=== PATIENT | male | born 1940 | race African-American/Black ===

== ENCOUNTER 2016-10-11 12:20 | Day surgery (SDC) | payer OTHER ==
[~2016-10-11] VITALS: Ht 170.2 cm; Wt 70.3 kg
[~2016-10-11 12:20] MED LIST: ALEVE220 M2 PO; ASPIR-LOW81 MG PO; ATORVASTATIN CA20 MG PO; ATORVASTATIN CA40 MG PO; Aspirin E.C. PO; B COMPLETE1 EACH PO; CARVEDILOL3.125 MG PO; CARVEDILOL6.25 MG PO; CITALOPRAM HBR10 MG PO; CYCLOBENZAPRINE10 MG PO; FLEXERIL10 MG PO; FUROSEMIDE20 MG PO; LEVOTHYROXINE25 MCG PO; LIPITOR20 MG PO; LISINOPRIL2.5 MG PO; MEDROL DOSEPAK4 MG PO; METOPROLOL TART25 MG PO; NORCO 5/3251 TABLET PO; OMEPRAZOLE40 M1 PO; PLAVIX75 MG PO; Plavix PO; SERTRALINE HCL50 MG PO; SPIRONOLACTONE25 MG PO; ST. JOSEPH ASPI81 MG PO; TAMSULOSIN HCL0.4 MG PO; VITAMIN D31000 UNIT PO; Zocor PO
== END 2016-10-11 16:20 | disposition home or self-care (01) ==
LOC: CATH 12:20
DX: Z45.02 Encounter for adjustment and management of automatic implantable cardiac defibrillator (principal); I47.2 Ventricular tachycardia; I25.2 Old myocardial infarction; I42.0 Dilated cardiomyopathy; I35.0 Nonrheumatic aortic (valve) stenosis; I10 Essential (primary) hypertension; E78.01 Familial hypercholesterolemia; E03.9 Hypothyroidism, unspecified; Z87.891 Personal history of nicotine dependence; Z79.82 Long term (current) use of aspirin
CPT/HCPCS: J0690; J1200; J2250; J3010; S0020

== ENCOUNTER → 2017-03-01 | Outpatient (CLI) | payer OTHER ==
[~2017-03-01] VITALS: Ht 170.2 cm; Wt 70.3 kg
[2017-03-01 15:02] LABS: MCH 30.7 PG (29.0-34.0); MCHC 32.2 G/DL (30.0-36.0); MCV 95.1 FL (86-99); MEAN PLAT.VOLUME 10.8 uM^3 (9.0-12.4); PLATELET COUNT 106 K/uL (156-360); RBC DIS.WIDTH-CV 13.4 % (11.8-14.6); RBC DIS.WIDTH-SD 47.4 % (39-53); RED BLOOD COUNT 4.73 M/uL (4.00-5.50); WHITE BLOOD COUNT 5.6 K/uL (4.1-10.2)
[2017-03-01 15:07] LABS: INTER. NORMALIZED RATIO 1.1; PROTHROMBIN TIME 12.5 SEC (10.2-12.9)
[2017-03-01 15:10] LABS: PTT 49.2 SEC (25-37)
== END | disposition home or self-care (01) ==
LOC: AMB 13:54
PROVIDERS: Internal Medicine Pulmonary Disease
PROC: 0BJ0XZZ Inspection of Tracheobronchial Tree, External Approach (ICD-10-PCS; principal; 2017-03-01)
DX: R04.2 Hemoptysis (principal); Z53.09 Procedure and treatment not carried out because of other contraindication
CPT/HCPCS: 85027; 85610; 85730; 86850; 86900; 86901; 99214; J0461; J2175; J2250; J2550; J3010

== ENCOUNTER → 2017-04-09 | Outpatient (CLI) | payer OTHER ==
[~2017-04-09] VITALS: Ht 170.2 cm; Wt 67.6 kg
[~2017-04-09] MED LIST changes: +ALDACTONE25 MG PO; +DYMISTA NASAL S23 GM BOTH NARES; +FLOMAX0.4 MG PO; +INCRUSE ELLI62.5 MCG IH; +IPRATROPIUM BRO30 ML BOTH NARES; +ZITHROMAX250 MG PO
[2017-04-09 14:42] LABS: HEMATOCRIT 45.5 % (38.0-50.0); MCH 32.6 PG (29.0-34.0); MCHC 33.4 G/DL (30.0-36.0); MCV 97.6 FL (86-99); MEAN PLAT.VOLUME 11.7 uM^3 (9.0-12.4); PLATELET COUNT 111 K/uL (156-360); RBC DIS.WIDTH-SD 49.9 % (39-53); RED BLOOD COUNT 4.66 M/uL (4.00-5.50); WHITE BLOOD COUNT 6.7 K/uL (4.1-10.2)
[2017-04-09 14:50] LABS: INTER. NORMALIZED RATIO 1.1; PROTHROMBIN TIME 11.7 SEC (10.2-12.9)
[2017-04-09 14:52] LABS: PTT 49.7 SEC (25-37)
== END | disposition home or self-care (01) ==
LOC: AMB 13:00
PROVIDERS: Internal Medicine Pulmonary Disease
PROC: 0B9D8ZX Drainage of Right Middle Lung Lobe, Via Natural or Artificial Opening Endoscopic, Diagnostic (ICD-10-PCS; principal; 2017-04-09)
DX: R91.8 Other nonspecific abnormal finding of lung field (principal); R05 Cough; J44.9 Chronic obstructive pulmonary disease, unspecified; R63.4 Abnormal weight loss; I10 Essential (primary) hypertension; E03.9 Hypothyroidism, unspecified; I48.91 Unspecified atrial fibrillation; I25.2 Old myocardial infarction; Z87.891 Personal history of nicotine dependence; Z95.0 Presence of cardiac pacemaker
CPT/HCPCS: 85027; 85610; 85730; 87070; 87116; 87205; 87206; 88108; J0461; J2175; J2250; J2310; J2550; J3010

== ENCOUNTER 2017-06-13 12:51 | Inpatient (IN) | payer OTHER ==
[~2017-06-13] VITALS: Ht 172.7 cm; Wt 73.7 kg
[2017-06-13 13:53] LABS: HEMATOCRIT 41.5 % (38.0-50.0); MCH 31.7 PG (29.0-34.0); MCHC 33.7 G/DL (30.0-36.0); MCV 93.9 FL (86-99); PLATELET COUNT 133 K/uL (156-360); RBC DIS.WIDTH-CV 13.5 % (11.8-14.6); RBC DIS.WIDTH-SD 46.5 % (39-53); RED BLOOD COUNT 4.42 M/uL (4.00-5.50); WHITE BLOOD COUNT 6.6 K/uL (4.1-10.2)
[2017-06-13 14:01] LABS: CHLORIDE 112 mEq/L (99-109); POTASSIUM 4.3 mEq/L (3.7-5.4); SODIUM 139 mEq/L (136-147)
[2017-06-13 14:03] LABS: GLUCOSE 119 mg/dL (70-99)
[2017-06-13 14:07] LABS: GFR ESTIMATE (CALCULATED) > 59 mL/min/ (58.99-99999)
[2017-06-13 14:08] LABS: UREA NITROGEN (BUN) 16 mg/dL (9-23)
[2017-06-13 14:14] LABS: TROP-I INTERPRETATION NEGATIVE; TROPONIN-I 0.03 ng/mL (0.0-0.30)
[2017-06-13] MEDS ORDERED: DELTASONE20 M1 PO (15:58)
[2017-06-13] MEDS ORDERED: TRAMADOL HCL50 MG PO (15:59)
[2017-06-13] MEDS ORDERED: AUGMENTIN875 MG PO (15:59)
[2017-06-13] MEDS ORDERED: TRIAMCINOLONE A15 GM TP (15:59)
[2017-06-13] MEDS ORDERED: PROAIR HFA8.5 GM IH (15:59)
[2017-06-13 18:06] LABS: TROP-I INTERPRETATION NEGATIVE; TROPONIN-I 0.03 ng/mL (0.0-0.30)
[2017-06-13 18:10] VITALS: BP 133/86
[2017-06-13 19:45] VITALS: BP 114/76
[2017-06-13 23:44] VITALS: BP 93/71
[2017-06-14 01:23] LABS: TROP-I INTERPRETATION NEGATIVE; TROPONIN-I 0.02 ng/mL (0.0-0.30)
[2017-06-14 03:50] VITALS: BP 88/67
[2017-06-14 04:46] VITALS: BP 95/69
[2017-06-14 06:55] LABS: HEMATOCRIT 42.3 % (38.0-50.0); HEMOGLOBIN 13.8 G/DL (12.5-16.6); MCH 31.6 PG (29.0-34.0); MCHC 32.6 G/DL (30.0-36.0); MCV 96.8 FL (86-99); PLATELET COUNT 121 K/uL (156-360); RBC DIS.WIDTH-CV 13.8 % (11.8-14.6); RBC DIS.WIDTH-SD 49.8 % (39-53); RED BLOOD COUNT 4.37 M/uL (4.00-5.50); WHITE BLOOD COUNT 5.5 K/uL (4.1-10.2)
[2017-06-14 07:12] LABS: TROP-I INTERPRETATION NEGATIVE; TROPONIN-I 0.04 ng/mL (0.0-0.30)
[2017-06-14 07:18] LABS: ALBUMIN 3.4 G/DL (3.2-4.8); ALKALINE PHOSPHATASE 82 IU/L (3-129); ALT (GPT) 61 IU/L (3-49); AST (GOT) 29 IU/L (2-34); CHLORIDE 110 MEQ/L (99-109); CREATININE 1.2 MG/DL (0.6-1.3); GFR ESTIMATE (CALCULATED) > 59 mL/min/ (58.99-99999); GLUCOSE 135 mg/dL (70-99); POTASSIUM 4.9 MEQ/L (3.7-5.4); SODIUM 138 MEQ/L (136-147); TOTAL BILIRUBIN 0.9 MG/DL (0.0-1.0); TOTAL PROTEIN 5.1 G/DL (6.4-8.3); UREA NITROGEN (BUN) 20 mg/dL (9-23)
[2017-06-14 08:09] VITALS: BP 118/54
[2017-06-14 08:33] LABS: INTER. NORMALIZED RATIO 1.1
[2017-06-14 08:36] LABS: PTT 48.4 SEC (25-37)
[2017-06-14 11:05] VITALS: BP 100/68
[2017-06-14 12:49] LABS: TYPE OF FLUID PLEURAL
[2017-06-14 13:26] LABS: APPEARANCE CLEAR-YELLOW; BODY FLUID EOSINOPHILS 0 % (0-25); BODY FLUID RBC'S 1000 /MM^3 (0-100); BODY FLUID WBC'S 239 /MM^3 (0-500); MONONUCLEAR WBC'S 10 %; POLYNUCLEAR WBC'S 90 % (0-25)
[2017-06-14 13:41] LABS: BODY FLUID GLUCOSE 164 MG/DL; BODY FLUID LDH 53 IU/L
[2017-06-14 13:44] LABS: BODY FLUID PROTEIN < 3.0 G/DL
[2017-06-14 15:39] VITALS: BP 95/68
[2017-06-14 19:59] VITALS: BP 95/65
[2017-06-15] VITALS (7 sets, daily range): BP systolic 92–102; BP diastolic 57–66
[2017-06-15 08:30] LABS: HEMATOCRIT 39.4 % (38.0-50.0); HEMOGLOBIN 13.1 G/DL (12.5-16.6); MCH 31.6 PG (29.0-34.0); MCHC 33.2 G/DL (30.0-36.0); MCV 94.9 FL (86-99); PLATELET COUNT 114 K/uL (156-360); RBC DIS.WIDTH-CV 14.1 % (11.8-14.6); RBC DIS.WIDTH-SD 49.1 % (39-53); RED BLOOD COUNT 4.15 M/uL (4.00-5.50); WHITE BLOOD COUNT 8.1 K/uL (4.1-10.2)
[2017-06-15 08:51] LABS: ALBUMIN 3.3 G/DL (3.2-4.8); CHLORIDE 109 MEQ/L (99-109); CREATININE 1.4 MG/DL (0.6-1.3); GFR ESTIMATE (CALCULATED) > 59 mL/min/ (58.99-99999); GLUCOSE 115 mg/dL (70-99); PHOSPHORUS 3.4 mg/dL (2.5-4.9); POTASSIUM 4.8 MEQ/L (3.7-5.4); SODIUM 138 MEQ/L (136-147); UREA NITROGEN (BUN) 30 mg/dL (9-23)
[2017-06-16 04:03] VITALS: BP 92/70
[2017-06-16 06:10] LABS: HEMATOCRIT 40.9 % (38.0-50.0); HEMOGLOBIN 13.6 G/DL (12.5-16.6); MCH 31.9 PG (29.0-34.0); MCHC 33.3 G/DL (30.0-36.0); PLATELET COUNT 115 K/uL (156-360); RBC DIS.WIDTH-SD 49.1 % (39-53); RED BLOOD COUNT 4.26 M/uL (4.00-5.50); WHITE BLOOD COUNT 6.8 K/uL (4.1-10.2)
[2017-06-16 06:41] LABS: ALBUMIN 3.6 G/DL (3.2-4.8); CHLORIDE 107 MEQ/L (99-109); CREATININE 1.3 MG/DL (0.6-1.3); GFR ESTIMATE (CALCULATED) > 59 mL/min/ (58.99-99999); GLUCOSE 119 mg/dL (70-99); PHOSPHORUS 3.9 mg/dL (2.5-4.9); POTASSIUM 4.7 MEQ/L (3.7-5.4); SODIUM 137 MEQ/L (136-147); UREA NITROGEN (BUN) 37 mg/dL (9-23)
[2017-06-16 07:51] VITALS: BP 96/72
[2017-06-16 11:49] VITALS: BP 95/63
[2017-06-16 15:29] VITALS: BP 106/67
[2017-06-16 19:48] VITALS: BP 100/55
[2017-06-16 23:40] VITALS: BP 101/72
[2017-06-17 03:33] VITALS: BP 100/64
[2017-06-17 07:06] LABS: BASOPHIL (%) 0.1 % (0-1); EOSINOPHIL (%) 0.7 % (0-5); EOSINOPHIL COUNT 0.1 K/uL (0-0.3); HEMATOCRIT 39.7 % (38.0-50.0); HEMOGLOBIN 13.4 G/DL (12.5-16.6); IMMATURE GRANULOCYTE (%) 0.4 % (0.0-0.7); LYMPHOCYTE (%) 9.9 % (15-42); LYMPHOCYTE COUNT 0.8 K/uL (1.0-2.8); MCH 31.9 PG (29.0-34.0); MCHC 33.8 G/DL (30.0-36.0); MCV 94.5 FL (86-99); MONOCYTE (%) 10.3 % (3-12); MONOCYTE COUNT 0.8 K/uL (0-0.8); NEUTROPHIL (%) 78.6 % (45-76); NEUTROPHIL COUNT 6.4 K/uL (1.8-6.4); PLATELET COUNT 113 K/uL (156-360); RBC DIS.WIDTH-SD 48.4 % (39-53); WHITE BLOOD COUNT 8.1 K/uL (4.1-10.2)
[2017-06-17 07:35] VITALS: BP 108/64
[2017-06-17 07:41] LABS: ALBUMIN 3.3 G/DL (3.2-4.8); CHLORIDE 108 MEQ/L (99-109); CREATININE 1.4 MG/DL (0.6-1.3); GFR ESTIMATE (CALCULATED) > 59 mL/min/ (58.99-99999); PHOSPHORUS 2.7 mg/dL (2.5-4.9); POTASSIUM 4.5 MEQ/L (3.7-5.4); SODIUM 138 MEQ/L (136-147); UREA NITROGEN (BUN) 33 mg/dL (9-23)
[2017-06-17 07:42] LABS: GLUCOSE 88 mg/dL (70-99)
[2017-06-17] MEDS ORDERED: DUONEB 2.5-0.5 M3 ML AEROSOL (08:01)
[2017-06-17] MEDS ORDERED: OXYGEN MC (08:07)
[2017-06-17 11:57] VITALS: BP 88/59
[2017-06-17 16:31] VITALS: BP 106/61
[2017-06-17 20:05] VITALS: BP 100/71
[2017-06-18 00:08] VITALS: BP 111/82
[2017-06-18 04:15] VITALS: BP 109/68
[2017-06-18 08:00] VITALS: BP 97/69
== END 2017-06-18 16:12 | disposition home health service (06) | DRG 189 ==
LOC: EME 12:51 → EDOF 16:14 → 5SOUTH 16:14 → ENRESERV 16:17 → 5SOUTH 18:08
PROVIDERS: Internal Medicine; Physician Assistant; Radiology Diagnostic Radiology
PROC: 0W993ZZ Drainage of Right Pleural Cavity, Percutaneous Approach (ICD-10-PCS; principal; 2017-06-14)
DX: J96.01 Acute respiratory failure with hypoxia (principal); J44.0 Chronic obstructive pulmonary disease with (acute) lower respiratory infection; J44.1 Chronic obstructive pulmonary disease with (acute) exacerbation; J18.9 Pneumonia, unspecified organism; E78.5 Hyperlipidemia, unspecified; E03.9 Hypothyroidism, unspecified; I25.2 Old myocardial infarction; N40.0 Benign prostatic hyperplasia without lower urinary tract symptoms; F32.9 Major depressive disorder, single episode, unspecified; I11.0 Hypertensive heart disease with heart failure; I50.9 Heart failure, unspecified; Z95.810 Presence of automatic (implantable) cardiac defibrillator; Z96.652 Presence of left artificial knee joint; Z87.891 Personal history of nicotine dependence; I25.10 Atherosclerotic heart disease of native coronary artery without angina pectoris; G89.29 Other chronic pain; F41.9 Anxiety disorder, unspecified
CPT/HCPCS: 71260; 76942; 80048; 80053; 80069; 82945; 82947 91; 83605; 83615; 83615 91; 83880; 84155; 84157; 84484; 85025; 85027; 85610; 85730; 87040; 87070; 87205; 88108; 89051; 90686; 93005; 94640; 94640 76; 94667; 94668; 94760; 94799; 97530 GO; 99202; 99281; 99285; J1650; J2543; J2920; J2930; J7050; J7120; J7512

== ENCOUNTER 2017-08-18 16:54 | Inpatient (IN) | payer OTHER ==
[~2017-08-18] VITALS: Ht 170.2 cm; Wt 65.4 kg
[~2017-08-18 16:54] MED LIST changes: +AUGMENTIN875 MG PO; +DELTASONE20 M1 PO; +DUONEB 2.5-0.5 M3 ML AEROSOL; +OXYGEN MC; +PROAIR HFA8.5 GM IH; +TRAMADOL HCL50 MG PO
[2017-08-18 17:52] LABS: HEMATOCRIT 37.4 % (38.0-50.0); HEMOGLOBIN 12.7 G/DL (12.5-16.6); MCH 32.1 PG (29.0-34.0); MCV 94.4 FL (86-99); PLATELET COUNT 132 K/uL (156-360); RBC DIS.WIDTH-CV 14.1 % (11.8-14.6); RBC DIS.WIDTH-SD 49.3 % (39-53); RED BLOOD COUNT 3.96 M/uL (4.00-5.50); WHITE BLOOD COUNT 8.1 K/uL (4.1-10.2)
[2017-08-18 18:02] LABS: CHLORIDE 106 mEq/L (99-109); POTASSIUM 4.3 mEq/L (3.7-5.4); SODIUM 138 mEq/L (136-147)
[2017-08-18 18:04] LABS: GLUCOSE 100 mg/dL (70-99)
[2017-08-18 18:07] LABS: GFR ESTIMATE (CALCULATED) > 59 mL/min/ (58.99-99999)
[2017-08-18 18:08] LABS: UREA NITROGEN (BUN) 16 mg/dL (9-23)
[2017-08-18 18:24] LABS: BASE EXCESS -1.1 mEq/L (-3 to +3); CARBOXY HGB 2.5 % (0-5); COMMENTS - BLOOD GASES A+C+; DEVICE NC; METHEMOGLOBIN 0.9 % (0-1.5); O2 FLOW 4 L/MIN; PCO2 31 mm Hg (35-45); PO2 73 mm Hg (80-100); SITE RR; TOTAL RESP RATE 22 resp/min; pH 7.46 (7.35-7.45)
[2017-08-18 19:19] LABS: INTER. NORMALIZED RATIO 1.2
[2017-08-18 19:22] LABS: PTT 36.9 SEC (25-37)
[2017-08-18 19:24] LABS: ALBUMIN 3.7 g/dL (3.2-4.8)
[2017-08-18 19:27] LABS: TOTAL PROTEIN 5.9 g/dL (6.4-8.3)
[2017-08-18 19:29] LABS: TOTAL BILIRUBIN 1.4 mg/dL (0.0-1.0)
[2017-08-18 19:30] LABS: ALKALINE PHOSPHATASE 79 IU/L (3-129)
[2017-08-18 19:33] LABS: ALT (GPT) 19 IU/L (3-49); AST (GOT) 14 IU/L (2-34); DIRECT BILIRUBIN 0.6 mg/dL (0.0-0.3)
[2017-08-18 19:34] LABS: LIPASE 2 U/L (1.0-51.0)
[2017-08-18 19:40] LABS: TROP-I INTERPRETATION NEGATIVE; TROPONIN-I 0.03 ng/mL (0.0-0.30)
[2017-08-18] MEDS ORDERED: TRIAMCINOLONE A15 GM TP (21:26)
[2017-08-19 06:46] LABS: APPEARANCE CLEAR ((CLEAR)); BILIRUBIN NEGATIVE; BLOOD SMALL; COLOR YELLOW ((YELLOW)); GLUCOSE (STRIP) NEGATIVE; KETONES 5; LEUKOCYTES NEGATIVE; NITRITE NEGATIVE; PROTEIN (STRIP) NEGATIVE; UROBILINOGEN 0.2 MG/DL (0.2-1.0)
[2017-08-19 06:54] LABS: BACTERIA NONE SEEN /HPF; EPITHELIAL CELLS NONE SEEN /HPF; MUCUS NONE SEEN /LPF; UCUL ADDED? NO; WHITE BLOOD CELLS 0-5 /HPF (0-5)
[2017-08-19 07:04] LABS: SPECIFIC GRAVITY 1.052 (1.000-1.030)
[2017-08-19 07:51] LABS: BASOPHIL (%) 0.5 % (0-1); EOSINOPHIL (%) 2.7 % (0-5); EOSINOPHIL COUNT 0.2 K/uL (0-0.3); HEMATOCRIT 39.3 % (38.0-50.0); HEMOGLOBIN 12.9 G/DL (12.5-16.6); IMMATURE GRANULOCYTE (%) 0.3 % (0.0-0.7); LYMPHOCYTE (%) 9.7 % (15-42); LYMPHOCYTE COUNT 0.8 K/uL (1.0-2.8); MCH 31.6 PG (29.0-34.0); MCHC 32.8 G/DL (30.0-36.0); MCV 96.3 FL (86-99); MONOCYTE (%) 8.7 % (3-12); MONOCYTE COUNT 0.8 K/uL (0-0.8); NEUTROPHIL (%) 78.1 % (45-76); NEUTROPHIL COUNT 6.7 K/uL (1.8-6.4); PLATELET COUNT 152 K/uL (156-360); RBC DIS.WIDTH-CV 14.3 % (11.8-14.6); RBC DIS.WIDTH-SD 50.8 % (39-53); RED BLOOD COUNT 4.08 M/uL (4.00-5.50); WHITE BLOOD COUNT 8.6 K/uL (4.1-10.2)
[2017-08-19 10:27] LABS: CHLORIDE 108 MEQ/L (99-109); CREATININE 1.1 MG/DL (0.6-1.3); GFR ESTIMATE (CALCULATED) > 59 mL/min/ (58.99-99999); GLUCOSE 112 mg/dL (70-99); POTASSIUM 4.3 MEQ/L (3.7-5.4); SODIUM 141 MEQ/L (136-147); UREA NITROGEN (BUN) 16 mg/dL (9-23)
[2017-08-19 15:16] LABS: TYPE OF FLUID PLEURAL
[2017-08-19 15:45] LABS: BODY FLUID GLUCOSE 120 MG/DL; BODY FLUID LDH 49 IU/L
[2017-08-19 15:54] LABS: BODY FLUID PROTEIN < 3.0 G/DL
[2017-08-19 16:52] LABS: APPEARANCE SL. HAZY-YELLOW; BODY FLUID EOSINOPHILS 0 % (0-25); BODY FLUID RBC'S 3000 /MM^3 (0-100); BODY FLUID WBC'S 288 /MM^3 (0-500); MONONUCLEAR WBC'S 61 %; POLYNUCLEAR WBC'S 39 % (0-25)
[2017-08-19 16:54] LABS: COMMENT MNY MACROPHAGES SEEN
[2017-08-19 17:02] VITALS: BP 91/64
[2017-08-19 20:27] VITALS: BP 100/65
[2017-08-20] VITALS (7 sets, daily range): BP systolic 91–99; BP diastolic 53–65
[2017-08-20 08:52] LABS: TYPE OF FLUID PLEURAL
[2017-08-20 09:14] LABS: APPEARANCE HAZY-YELLOW; BODY FLUID RBC'S 15000 /MM^3 (0-100); BODY FLUID WBC'S 1002 /MM^3 (0-500)
[2017-08-20 10:11] LABS: BODY FLUID GLUCOSE 91 MG/DL; BODY FLUID LDH 69 IU/L; BODY FLUID PROTEIN < 3.0 G/DL
[2017-08-20 11:04] LABS: BODY FLUID EOSINOPHILS 1 % (0-25); MONONUCLEAR WBC'S 17 %; POLYNUCLEAR WBC'S 82 % (0-25)
[2017-08-21 03:22] VITALS: BP 91/57
[2017-08-21 07:44] VITALS: BP 106/59
[2017-08-21 12:07] VITALS: BP 76/51
[2017-08-21 16:03] VITALS: BP 80/52
[2017-08-21 19:22] VITALS: BP 96/54
[2017-08-21 23:34] VITALS: BP 93/64
[2017-08-22 04:54] VITALS: BP 102/57
[2017-08-22 09:41] VITALS: BP 101/58
[2017-08-22 12:30] VITALS: BP 93/67
[2017-08-22 12:32] LABS: CHLORIDE 105 MEQ/L (99-109); CREATININE 0.9 MG/DL (0.6-1.3); GFR ESTIMATE (CALCULATED) > 59 mL/min/ (58.99-99999); GLUCOSE 105 mg/dL (70-99); POTASSIUM 4.1 MEQ/L (3.7-5.4); SODIUM 136 MEQ/L (136-147); UREA NITROGEN (BUN) 15 mg/dL (9-23)
[2017-08-22 16:44] VITALS: BP 114/66
[2017-08-22 20:00] VITALS: BP 100/57
[2017-08-22 23:55] VITALS: BP 91/61
[2017-08-23 04:00] VITALS: BP 90/55
[2017-08-23 05:49] LABS: BASOPHIL (%) 0.5 % (0-1); EOSINOPHIL COUNT 0.4 K/uL (0-0.3); HEMATOCRIT 34.9 % (38.0-50.0); HEMOGLOBIN 11.4 G/DL (12.5-16.6); IMMATURE GRANULOCYTE (%) 0.5 % (0.0-0.7); LYMPHOCYTE (%) 11.7 % (15-42); LYMPHOCYTE COUNT 0.7 K/uL (1.0-2.8); MCH 30.6 PG (29.0-34.0); MCHC 32.7 G/DL (30.0-36.0); MCV 93.6 FL (86-99); MONOCYTE (%) 11.2 % (3-12); MONOCYTE COUNT 0.7 K/uL (0-0.8); NEUTROPHIL (%) 70.1 % (45-76); NEUTROPHIL COUNT 4.3 K/uL (1.8-6.4); PLATELET COUNT 150 K/uL (156-360); RBC DIS.WIDTH-CV 13.9 % (11.8-14.6); RBC DIS.WIDTH-SD 48.2 % (39-53); RED BLOOD COUNT 3.73 M/uL (4.00-5.50); WHITE BLOOD COUNT 6.2 K/uL (4.1-10.2)
[2017-08-23 06:18] LABS: CHLORIDE 106 MEQ/L (99-109); CREATININE 0.9 MG/DL (0.6-1.3); GFR ESTIMATE (CALCULATED) > 59 mL/min/ (58.99-99999); GLUCOSE 97 mg/dL (70-99); POTASSIUM 4.3 MEQ/L (3.7-5.4); SODIUM 137 MEQ/L (136-147); UREA NITROGEN (BUN) 14 mg/dL (9-23)
[2017-08-23 07:12] VITALS: BP 87/55
[2017-08-23 11:03] VITALS: BP 90/61
[2017-08-23 15:01] VITALS: BP 99/62
[2017-08-23 20:00] VITALS: BP 100/67
[2017-08-23 23:55] VITALS: BP 100/59
[2017-08-24 03:30] VITALS: BP 98/64
[2017-08-24 06:12] LABS: CHLORIDE 103 MEQ/L (99-109); CREATININE 0.9 MG/DL (0.6-1.3); GFR ESTIMATE (CALCULATED) > 59 mL/min/ (58.99-99999); GLUCOSE 86 mg/dL (70-99); POTASSIUM 4.7 MEQ/L (3.7-5.4); SODIUM 138 MEQ/L (136-147); UREA NITROGEN (BUN) 13 mg/dL (9-23)
[2017-08-24 09:08] VITALS: BP 100/73
[2017-08-24] MEDS ORDERED: CEFTRIAXONE1 G1 IV (11:44)
[2017-08-24] MEDS ORDERED: CARVEDILOL3.125 MG PO (11:47)
[2017-08-24 12:08] VITALS: BP 99/55
== END 2017-08-24 14:48 | DRG 193 ==
LOC: EME 16:54 → 4EAST 21:13 → EDOF 21:13 → ENRESERV 21:14 → 4EAST 08-19 16:54
PROVIDERS: Emergency Medicine; Hospitalist; Internal Medicine; Internal Medicine Pulmonary Disease; Physician Assistant Medical
PROC: 0W993ZZ Drainage of Right Pleural Cavity, Percutaneous Approach (ICD-10-PCS; principal; 2017-08-19)
PROC: 0W9B3ZZ Drainage of Left Pleural Cavity, Percutaneous Approach (ICD-10-PCS; 2017-08-20)
DX: J18.9 Pneumonia, unspecified organism (principal); I50.23 Acute on chronic systolic (congestive) heart failure; J91.8 Pleural effusion in other conditions classified elsewhere; R78.81 Bacteremia; J98.11 Atelectasis; J96.11 Chronic respiratory failure with hypoxia; J44.0 Chronic obstructive pulmonary disease with (acute) lower respiratory infection; F33.9 Major depressive disorder, recurrent, unspecified; E03.9 Hypothyroidism, unspecified; I11.0 Hypertensive heart disease with heart failure; F41.9 Anxiety disorder, unspecified; I25.10 Atherosclerotic heart disease of native coronary artery without angina pectoris; Z96.653 Presence of artificial knee joint, bilateral; K59.00 Constipation, unspecified; I95.9 Hypotension, unspecified; E78.5 Hyperlipidemia, unspecified; I27.20 Pulmonary hypertension, unspecified; I36.1 Nonrheumatic tricuspid (valve) insufficiency; Z99.81 Dependence on supplemental oxygen; Z87.891 Personal history of nicotine dependence; Z95.810 Presence of automatic (implantable) cardiac defibrillator
CPT/HCPCS: 36600; 71045; 71046; 71260; 74018; 76942; 80048; 80076; 80200; 81003; 82803; 82945; 83605; 83615 91; 83690; 83880; 84157; 84484; 85025; 85027; 85610; 85730; 87040; 87070; 87075; 87077; 87102; 87116; 87186; 87205; 87206; 87449; 87502; 87801; 88108; 88305; 89051; 93005; 93306; 93970; 94010; 94640; 94640 76; 94799; 99202; 99281; 99285; J0692; J0696; J1644; J1956; J2270; J2543; J3260; J3370; J7040; J7050

== ENCOUNTER 2017-10-06 16:41 | Inpatient (IN) | payer OTHER ==
[~2017-10-06] VITALS: Ht 170.2 cm; Wt 68.5 kg
[~2017-10-06 16:41] MED LIST changes: +CEFTRIAXONE1 G1 IV; +LEVOTHYROXINE75 MCG PO; +TRIAMCINOLONE A15 GM TP
[2017-10-06 17:09] LABS: BASOPHIL (%) 0.1 % (0-1); EOSINOPHIL (%) 0 % (0-5); HEMATOCRIT 39.7 % (38.0-50.0); HEMOGLOBIN 13.6 G/DL (12.5-16.6); IMMATURE GRANULOCYTE (%) 0.5 % (0.0-0.7); LYMPHOCYTE (%) 4.8 % (15-42); LYMPHOCYTE COUNT 0.4 K/uL (1.0-2.8); MCH 32.2 PG (29.0-34.0); MCHC 34.3 G/DL (30.0-36.0); MCV 93.9 FL (86-99); MONOCYTE (%) 6.9 % (3-12); MONOCYTE COUNT 0.6 K/uL (0-0.8); NEUTROPHIL (%) 87.7 % (45-76); NEUTROPHIL COUNT 7.3 K/uL (1.8-6.4); RBC DIS.WIDTH-SD 51.3 % (39-53); RED BLOOD COUNT 4.23 M/uL (4.00-5.50); WHITE BLOOD COUNT 8.3 K/uL (4.1-10.2)
[2017-10-06 17:15] LABS: INTER. NORMALIZED RATIO 1.5
[2017-10-06 17:18] LABS: PTT 44.2 SEC (25-37)
[2017-10-06 17:20] LABS: ALBUMIN 3.8 g/dL (3.2-4.8)
[2017-10-06 17:21] LABS: CHLORIDE 105 mEq/L (99-109); POTASSIUM 4.9 mEq/L (3.7-5.4); SODIUM 135 mEq/L (136-147)
[2017-10-06 17:23] LABS: GLUCOSE 111 mg/dL (70-99); TOTAL PROTEIN 6.2 g/dL (6.4-8.3)
[2017-10-06 17:25] LABS: TOTAL BILIRUBIN 2.1 mg/dL (0.0-1.0)
[2017-10-06 17:26] LABS: ALKALINE PHOSPHATASE 88 IU/L (3-129)
[2017-10-06 17:27] LABS: CREATININE 1.1 mg/dL (0.6-1.3); GFR ESTIMATE (CALCULATED) > 59 mL/min/ (58.99-99999)
[2017-10-06 17:28] LABS: AST (GOT) 35 IU/L (2-34); UREA NITROGEN (BUN) 25 mg/dL (9-23)
[2017-10-06 17:30] LABS: ALT (GPT) 59 IU/L (3-49)
[2017-10-06 17:35] LABS: TROP-I INTERPRETATION NEGATIVE; TROPONIN-I 0.05 ng/mL (0.0-0.30)
[2017-10-06 17:45] LABS: PLAT.SUFFICIENCY DECREASED; PLATELET COUNT 122 K/uL (156-360)
[2017-10-06 18:36] LABS: BASE EXCESS -2.7 mEq/L (-3 to +3); BICARBONATE 20.6 mEq/L (22-26); CARBOXY HGB 2.5 % (0-5); METHEMOGLOBIN 0.9 % (0-1.5); PCO2 31 mm Hg (35-45); PO2 61 mm Hg (80-100); pH 7.43 (7.35-7.45)
[2017-10-06 18:37] LABS: COMMENTS - BLOOD GASES A+C+; DEVICE NC; O2 FLOW 4 L/MIN; SITE RR; TOTAL RESP RATE 38 resp/min
[2017-10-06 21:38] VITALS: BP 103/78
[2017-10-06 21:55] VITALS: BP 90/72
[2017-10-06 22:02] VITALS: BP 91/67
[2017-10-06 23:01] VITALS: BP 93/72
[2017-10-07] VITALS (24 sets, daily range): BP systolic 69–103; BP diastolic 46–78
[2017-10-07 06:11] LABS: BASE EXCESS -2.7 mEq/L (-3 to +3); BICARBONATE 22.6 mEq/L (22-26); CARBOXY HGB 2.5 % (0-5); METHEMOGLOBIN 1.4 % (0-1.5); PO2 65 mm Hg (80-100); pH 7.36 (7.35-7.45)
[2017-10-07 06:12] LABS: COMMENTS - BLOOD GASES C+; DEVICE NC; O2 FLOW 6 L/MIN; PCO2 40 mm Hg (35-45); SITE RR
[2017-10-07 06:27] LABS: HEMATOCRIT 35.3 % (38.0-50.0); HEMOGLOBIN 11.7 G/DL (12.5-16.6); MCH 31.7 PG (29.0-34.0); MCHC 33.1 G/DL (30.0-36.0); MCV 95.7 FL (86-99); PLATELET COUNT 96 K/uL (156-360); RBC DIS.WIDTH-CV 15.2 % (11.8-14.6); RBC DIS.WIDTH-SD 52.9 % (39-53); RED BLOOD COUNT 3.69 M/uL (4.00-5.50); WHITE BLOOD COUNT 6.5 K/uL (4.1-10.2)
[2017-10-07 06:54] LABS: CHLORIDE 105 MEQ/L (99-109); CREATININE 1.4 MG/DL (0.6-1.3); GFR ESTIMATE (CALCULATED) > 59 mL/min/ (58.99-99999); GLUCOSE 124 mg/dL (70-99); POTASSIUM 4.4 MEQ/L (3.7-5.4); SODIUM 136 MEQ/L (136-147); UREA NITROGEN (BUN) 28 mg/dL (9-23)
[2017-10-07 19:52] LABS: BASOPHIL (%) 0.1 % (0-1); EOSINOPHIL (%) 0.1 % (0-5); HEMATOCRIT 35.8 % (38.0-50.0); HEMOGLOBIN 11.5 G/DL (12.5-16.6); IMMATURE GRANULOCYTE (%) 0.4 % (0.0-0.7); LYMPHOCYTE COUNT 0.5 K/uL (1.0-2.8); MCH 31.1 PG (29.0-34.0); MCHC 32.1 G/DL (30.0-36.0); MCV 96.8 FL (86-99); MONOCYTE (%) 7.1 % (3-12); MONOCYTE COUNT 0.6 K/uL (0-0.8); NEUTROPHIL (%) 86.3 % (45-76); NEUTROPHIL COUNT 7.4 K/uL (1.8-6.4); PLATELET COUNT 100 K/uL (156-360); RBC DIS.WIDTH-CV 15.2 % (11.8-14.6); RBC DIS.WIDTH-SD 53.5 % (39-53); WHITE BLOOD COUNT 8.6 K/uL (4.1-10.2)
[2017-10-07 21:01] LABS: ALBUMIN 2.9 G/DL (3.2-4.8); ALKALINE PHOSPHATASE 147 IU/L (3-129); ALT (GPT) 111 IU/L (3-49); AST (GOT) 118 IU/L (2-34); CHLORIDE 108 MEQ/L (99-109); CREATININE 1.5 MG/DL (0.6-1.3); GFR ESTIMATE (CALCULATED) 58 mL/min/ (58.99-99999); GLUCOSE 141 mg/dL (70-99); MAGNESIUM 1.9 mg/dl (1.3-2.7); PHOSPHORUS 3.4 mg/dL (2.5-4.9); POTASSIUM 3.9 MEQ/L (3.7-5.4); SODIUM 137 MEQ/L (136-147); TOTAL BILIRUBIN 2.6 MG/DL (0.0-1.0); TOTAL PROTEIN 4.5 G/DL (6.4-8.3); UREA NITROGEN (BUN) 33 mg/dL (9-23)
[2017-10-07 21:46] LABS: HIGH-SENS C-REACTIVE PROTEIN < 8.00 MG/DL (0.02-0.20)
[2017-10-08] VITALS (25 sets, daily range): BP systolic 78–105; BP diastolic 54–78
[2017-10-08 06:19] LABS: HEMATOCRIT 36.7 % (38.0-50.0); MCH 31.3 PG (29.0-34.0); MCHC 32.7 G/DL (30.0-36.0); MCV 95.8 FL (86-99); PLATELET COUNT 101 K/uL (156-360); RBC DIS.WIDTH-CV 15.3 % (11.8-14.6); RBC DIS.WIDTH-SD 53.6 % (39-53); RED BLOOD COUNT 3.83 M/uL (4.00-5.50); WHITE BLOOD COUNT 7.5 K/uL (4.1-10.2)
[2017-10-08 07:33] LABS: CHLORIDE 110 MEQ/L (99-109); CREATININE 1.8 MG/DL (0.6-1.3); GFR ESTIMATE (CALCULATED) 47 mL/min/ (58.99-99999); GLUCOSE 108 mg/dL (70-99); PHOSPHORUS 3.6 mg/dL (2.5-4.9); POTASSIUM 4.4 MEQ/L (3.7-5.4); SODIUM 139 MEQ/L (136-147); UREA NITROGEN (BUN) 36 mg/dL (9-23)
[2017-10-08 11:39] LABS: HIGH-SENS C-REACTIVE PROTEIN > 8.00 MG/DL (0.02-0.20)
[2017-10-08 12:53] LABS: INTER. NORMALIZED RATIO 1.3
[2017-10-08 12:56] LABS: PTT 47.9 SEC (25-37)
[2017-10-09] VITALS (12 sets, daily range): BP systolic 88–109; BP diastolic 49–78
[2017-10-09 11:24] LABS: TYPE OF FLUID PLEURAL
[2017-10-09 11:51] LABS: APPEARANCE SL. HAZY-YELLOW; BODY FLUID RBC'S 2000 /MM^3 (0-100); BODY FLUID WBC'S 274 /MM^3 (0-500)
[2017-10-09 12:04] LABS: BODY FLUID GLUCOSE 167 MG/DL; BODY FLUID LDH 51 IU/L
[2017-10-09 12:07] LABS: BODY FLUID PROTEIN 1.9 G/DL
[2017-10-09 12:54] LABS: BODY FLUID EOSINOPHILS 0 % (0-25); MONONUCLEAR WBC'S 12 %; POLYNUCLEAR WBC'S 88 % (0-25)
[2017-10-10] VITALS (11 sets, daily range): BP systolic 97–114; BP diastolic 47–72
[2017-10-10 04:34] LABS: BASOPHIL (%) 0 % (0-1); EOSINOPHIL (%) 0 % (0-5); HEMATOCRIT 34.1 % (38.0-50.0); HEMOGLOBIN 11.7 G/DL (12.5-16.6); IMMATURE GRANULOCYTE (%) 0.3 % (0.0-0.7); LYMPHOCYTE (%) 4.3 % (15-42); LYMPHOCYTE COUNT 0.3 K/uL (1.0-2.8); MCH 31.8 PG (29.0-34.0); MCHC 34.3 G/DL (30.0-36.0); MCV 92.7 FL (86-99); MONOCYTE (%) 8.3 % (3-12); MONOCYTE COUNT 0.5 K/uL (0-0.8); NEUTROPHIL (%) 87.1 % (45-76); NEUTROPHIL COUNT 5.4 K/uL (1.8-6.4); PLATELET COUNT 98 K/uL (156-360); RBC DIS.WIDTH-SD 51.8 % (39-53); RED BLOOD COUNT 3.68 M/uL (4.00-5.50); WHITE BLOOD COUNT 6.2 K/uL (4.1-10.2)
[2017-10-10 04:47] LABS: CHLORIDE 108 mEq/L (99-109); SODIUM 142 mEq/L (136-147)
[2017-10-10 04:49] LABS: GLUCOSE 137 mg/dL (70-99)
[2017-10-10 04:52] LABS: CREATININE 1.6 mg/dL (0.6-1.3); GFR ESTIMATE (CALCULATED) 54 mL/min/ (58.99-99999)
[2017-10-10 04:53] LABS: UREA NITROGEN (BUN) 32 mg/dL (9-23)
[2017-10-10 04:57] LABS: POTASSIUM 3.4 mEq/L (3.7-5.4)
[2017-10-11] VITALS (12 sets, daily range): BP systolic 96–118; BP diastolic 64–76
[2017-10-11 05:05] LABS: BASOPHIL (%) 0.2 % (0-1); EOSINOPHIL (%) 0 % (0-5); HEMATOCRIT 35.3 % (38.0-50.0); HEMOGLOBIN 11.9 G/DL (12.5-16.6); IMMATURE GRANULOCYTE (%) 0.7 % (0.0-0.7); LYMPHOCYTE COUNT 0.3 K/uL (1.0-2.8); MCH 31.7 PG (29.0-34.0); MCHC 33.7 G/DL (30.0-36.0); MCV 94.1 FL (86-99); MONOCYTE (%) 11.3 % (3-12); MONOCYTE COUNT 0.7 K/uL (0-0.8); NEUTROPHIL (%) 82.8 % (45-76); PLATELET COUNT 97 K/uL (156-360); RBC DIS.WIDTH-SD 52.4 % (39-53); RED BLOOD COUNT 3.75 M/uL (4.00-5.50)
[2017-10-11 05:21] LABS: CHLORIDE 107 mEq/L (99-109); POTASSIUM 3.9 mEq/L (3.7-5.4); SODIUM 144 mEq/L (136-147)
[2017-10-11 05:22] LABS: MAGNESIUM 2.2 mg/dL (1.3-2.7)
[2017-10-11 05:23] LABS: GLUCOSE 125 mg/dL (70-99)
[2017-10-11 05:26] LABS: CREATININE 1.7 mg/dL (0.6-1.3); GFR ESTIMATE (CALCULATED) 50 mL/min/ (58.99-99999)
[2017-10-11 05:27] LABS: UREA NITROGEN (BUN) 34 mg/dL (9-23)
[2017-10-12] VITALS (14 sets, daily range): BP systolic 81–105; BP diastolic 52–70
[2017-10-12 06:54] LABS: BASOPHIL (%) 0 % (0-1); EOSINOPHIL (%) 0.4 % (0-5); HEMATOCRIT 37.6 % (38.0-50.0); HEMOGLOBIN 12.4 G/DL (12.5-16.6); IMMATURE GRANULOCYTE (%) 0.4 % (0.0-0.7); LYMPHOCYTE (%) 7.3 % (15-42); LYMPHOCYTE COUNT 0.5 K/uL (1.0-2.8); MCH 31.2 PG (29.0-34.0); MCV 94.7 FL (86-99); MONOCYTE (%) 10.9 % (3-12); MONOCYTE COUNT 0.8 K/uL (0-0.8); NEUTROPHIL COUNT 5.5 K/uL (1.8-6.4); PLATELET COUNT 103 K/uL (156-360); RBC DIS.WIDTH-CV 14.9 % (11.8-14.6); RBC DIS.WIDTH-SD 51.8 % (39-53); RED BLOOD COUNT 3.97 M/uL (4.00-5.50); WHITE BLOOD COUNT 6.9 K/uL (4.1-10.2)
[2017-10-12 07:11] LABS: CHLORIDE 102 MEQ/L (99-109); CREATININE 1.7 MG/DL (0.6-1.3); GFR ESTIMATE (CALCULATED) 50 mL/min/ (58.99-99999); POTASSIUM 3.9 MEQ/L (3.7-5.4); SODIUM 142 MEQ/L (136-147); UREA NITROGEN (BUN) 36 mg/dL (9-23)
[2017-10-12 07:18] LABS: GLUCOSE 87 mg/dL (70-99)
[2017-10-13] VITALS (7 sets, daily range): BP systolic 88–108; BP diastolic 54–67
[2017-10-14] VITALS (7 sets, daily range): BP systolic 82–102; BP diastolic 53–71
[2017-10-14 06:35] LABS: HEMATOCRIT 40.4 % (38.0-50.0); HEMOGLOBIN 13.1 G/DL (12.5-16.6); MCH 30.9 PG (29.0-34.0); MCHC 32.4 G/DL (30.0-36.0); MCV 95.3 FL (86-99); PLATELET COUNT 105 K/uL (156-360); RBC DIS.WIDTH-CV 14.9 % (11.8-14.6); RBC DIS.WIDTH-SD 51.9 % (39-53); RED BLOOD COUNT 4.24 M/uL (4.00-5.50); WHITE BLOOD COUNT 5.8 K/uL (4.1-10.2)
[2017-10-14 07:05] LABS: CHLORIDE 104 MEQ/L (99-109); CREATININE 1.5 MG/DL (0.6-1.3); GFR ESTIMATE (CALCULATED) 58 mL/min/ (58.99-99999); GLUCOSE 90 mg/dL (70-99); POTASSIUM 3.2 MEQ/L (3.7-5.4); SODIUM 146 MEQ/L (136-147); UREA NITROGEN (BUN) 38 mg/dL (9-23)
[2017-10-14 15:53] LABS: MAGNESIUM 2.3 mg/dl (1.3-2.7)
[2017-10-14 19:11] LABS: APPEARANCE CLEAR ((CLEAR)); BILIRUBIN NEGATIVE; BLOOD NEGATIVE; COLOR YELLOW ((YELLOW)); GLUCOSE (STRIP) NEGATIVE; KETONES NEGATIVE; LEUKOCYTES NEGATIVE; NITRITE NEGATIVE; PROTEIN (STRIP) NEGATIVE; SPECIFIC GRAVITY 1.011 (1.000-1.030); UROBILINOGEN 0.2 MG/DL (0.2-1.0)
[2017-10-14 19:32] LABS: UR CREATININE CONCENTRATION 39.5 MG/DL
[2017-10-15 04:06] VITALS: BP 96/64
[2017-10-15 06:42] LABS: HEMATOCRIT 43.1 % (38.0-50.0); HEMOGLOBIN 14.2 G/DL (12.5-16.6); MCH 31.5 PG (29.0-34.0); MCHC 32.9 G/DL (30.0-36.0); MCV 95.6 FL (86-99); PLATELET COUNT 126 K/uL (156-360); RBC DIS.WIDTH-CV 15.2 % (11.8-14.6); RBC DIS.WIDTH-SD 53.5 % (39-53); RED BLOOD COUNT 4.51 M/uL (4.00-5.50); WHITE BLOOD COUNT 7.9 K/uL (4.1-10.2)
[2017-10-15 07:25] LABS: CHLORIDE 107 MEQ/L (99-109); CREATININE 1.5 MG/DL (0.6-1.3); GFR ESTIMATE (CALCULATED) 58 mL/min/ (58.99-99999); GLUCOSE 118 mg/dL (70-99); POTASSIUM 3.5 MEQ/L (3.7-5.4); SODIUM 149 MEQ/L (136-147); UREA NITROGEN (BUN) 33 mg/dL (9-23)
[2017-10-15 08:18] VITALS: BP 116/62
[2017-10-15 11:58] VITALS: BP 92/53
[2017-10-15 16:10] VITALS: BP 92/65
[2017-10-15 19:49] VITALS: BP 98/60
[2017-10-15 23:51] VITALS: BP 102/65
[2017-10-16 06:43] LABS: BASOPHIL (%) 0.2 % (0-1); EOSINOPHIL (%) 3.7 % (0-5); EOSINOPHIL COUNT 0.3 K/uL (0-0.3); HEMATOCRIT 40.2 % (38.0-50.0); HEMOGLOBIN 12.8 G/DL (12.5-16.6); IMMATURE GRANULOCYTE (%) 0.4 % (0.0-0.7); LYMPHOCYTE (%) 9.6 % (15-42); LYMPHOCYTE COUNT 0.8 K/uL (1.0-2.8); MCH 30.6 PG (29.0-34.0); MCHC 31.8 G/DL (30.0-36.0); MCV 96.2 FL (86-99); MONOCYTE (%) 8.7 % (3-12); MONOCYTE COUNT 0.7 K/uL (0-0.8); NEUTROPHIL (%) 77.4 % (45-76); NEUTROPHIL COUNT 6.5 K/uL (1.8-6.4); PLATELET COUNT 127 K/uL (156-360); RBC DIS.WIDTH-CV 15.1 % (11.8-14.6); RBC DIS.WIDTH-SD 53.9 % (39-53); RED BLOOD COUNT 4.18 M/uL (4.00-5.50); WHITE BLOOD COUNT 8.4 K/uL (4.1-10.2)
[2017-10-16 07:12] LABS: CHLORIDE 106 MEQ/L (99-109); CREATININE 1.4 MG/DL (0.6-1.3); GFR ESTIMATE (CALCULATED) > 59 mL/min/ (58.99-99999); GLUCOSE 99 mg/dL (70-99); POTASSIUM 3.7 MEQ/L (3.7-5.4); SODIUM 146 MEQ/L (136-147); UREA NITROGEN (BUN) 27 mg/dL (9-23)
[2017-10-16 07:18] VITALS: BP 104/69
[2017-10-16 15:30] VITALS: BP 94/60
[2017-10-16 23:58] VITALS: BP 93/59
[2017-10-17 05:50] LABS: BASOPHIL (%) 0.3 % (0-1); EOSINOPHIL (%) 3.3 % (0-5); EOSINOPHIL COUNT 0.3 K/uL (0-0.3); HEMOGLOBIN 12.9 G/DL (12.5-16.6); IMMATURE GRANULOCYTE (%) 0.3 % (0.0-0.7); LYMPHOCYTE (%) 10.2 % (15-42); LYMPHOCYTE COUNT 0.9 K/uL (1.0-2.8); MCHC 31.5 G/DL (30.0-36.0); MCV 98.6 FL (86-99); MONOCYTE (%) 8.7 % (3-12); MONOCYTE COUNT 0.8 K/uL (0-0.8); NEUTROPHIL (%) 77.2 % (45-76); NEUTROPHIL COUNT 6.8 K/uL (1.8-6.4); PLATELET COUNT 128 K/uL (156-360); RBC DIS.WIDTH-CV 15.4 % (11.8-14.6); RBC DIS.WIDTH-SD 55.9 % (39-53); RED BLOOD COUNT 4.16 M/uL (4.00-5.50); WHITE BLOOD COUNT 8.8 K/uL (4.1-10.2)
[2017-10-17 06:19] LABS: CHLORIDE 103 MEQ/L (99-109); CREATININE 1.4 MG/DL (0.6-1.3); GFR ESTIMATE (CALCULATED) > 59 mL/min/ (58.99-99999); GLUCOSE 100 mg/dL (70-99); POTASSIUM 3.2 MEQ/L (3.7-5.4); SODIUM 143 MEQ/L (136-147); UREA NITROGEN (BUN) 25 mg/dL (9-23)
[2017-10-17 08:08] VITALS: BP 118/58
[2017-10-17 11:35] VITALS: BP 116/64
[2017-10-17 15:45] VITALS: BP 102/64
[2017-10-17 21:02] VITALS: BP 89/66
[2017-10-18] VITALS: BP 95/62
[2017-10-18 08:03] VITALS: BP 107/66
[2017-10-18 08:32] LABS: BASOPHIL (%) 0.3 % (0-1); EOSINOPHIL (%) 1.8 % (0-5); EOSINOPHIL COUNT 0.2 K/uL (0-0.3); HEMATOCRIT 42.4 % (38.0-50.0); HEMOGLOBIN 13.3 G/DL (12.5-16.6); IMMATURE GRANULOCYTE (%) 0.3 % (0.0-0.7); LYMPHOCYTE (%) 9.6 % (15-42); LYMPHOCYTE COUNT 0.9 K/uL (1.0-2.8); MCH 30.9 PG (29.0-34.0); MCHC 31.4 G/DL (30.0-36.0); MCV 98.6 FL (86-99); MONOCYTE (%) 9.9 % (3-12); NEUTROPHIL (%) 78.1 % (45-76); NEUTROPHIL COUNT 7.5 K/uL (1.8-6.4); PLATELET COUNT 144 K/uL (156-360); RBC DIS.WIDTH-CV 15.5 % (11.8-14.6); RBC DIS.WIDTH-SD 56.8 % (39-53); WHITE BLOOD COUNT 9.6 K/uL (4.1-10.2)
[2017-10-18 09:31] LABS: CHLORIDE 103 MEQ/L (99-109); CREATININE 1.5 MG/DL (0.6-1.3); GFR ESTIMATE (CALCULATED) 58 mL/min/ (58.99-99999); GLUCOSE 88 mg/dL (70-99); MAGNESIUM 2.2 mg/dl (1.3-2.7); SODIUM 145 MEQ/L (136-147); UREA NITROGEN (BUN) 23 mg/dL (9-23)
[2017-10-18 09:39] LABS: POTASSIUM 4.1 MEQ/L (3.7-5.4)
[2017-10-18] MEDS ORDERED: FUROSEMIDE20 MG PO (12:29)
[2017-10-18 14:57] VITALS: BP 95/60
[2017-10-18 16:37] VITALS: BP 100/72
== END 2017-10-18 17:50 | DRG 871 ==
LOC: EME 16:41 → EDOF 20:11 → 4WEST 20:11 → ENRESERV 20:12 → 4WEST 21:34 → ENRESERV 10-12 08:54 → 5SOUTH 10-12 16:18 → ENRESERV 10-17 14:05 → 5EAST 10-17 15:39
PROVIDERS: Emergency Medicine; Family Medicine; Internal Medicine; Internal Medicine Critical Care Medicine; Physician Assistant; Physician Assistant Medical; Specialist; Surgery
DX: A40.3 Sepsis due to Streptococcus pneumoniae (principal); R65.21 Severe sepsis with septic shock; J13 Pneumonia due to Streptococcus pneumoniae; I50.23 Acute on chronic systolic (congestive) heart failure; R57.0 Cardiogenic shock; J96.21 Acute and chronic respiratory failure with hypoxia; I42.0 Dilated cardiomyopathy; E87.0 Hyperosmolality and hypernatremia; E87.2 Acidosis; J44.0 Chronic obstructive pulmonary disease with (acute) lower respiratory infection; J98.11 Atelectasis; N17.9 Acute kidney failure, unspecified; J90 Pleural effusion, not elsewhere classified; R04.2 Hemoptysis; R18.8 Other ascites; B95.3 Streptococcus pneumoniae as the cause of diseases classified elsewhere; D69.6 Thrombocytopenia, unspecified; E03.9 Hypothyroidism, unspecified; E78.5 Hyperlipidemia, unspecified; E87.6 Hypokalemia; G89.29 Other chronic pain; I34.0 Nonrheumatic mitral (valve) insufficiency; I36.1 Nonrheumatic tricuspid (valve) insufficiency; I27.20 Pulmonary hypertension, unspecified; H91.93 Unspecified hearing loss, bilateral; I25.10 Atherosclerotic heart disease of native coronary artery without angina pectoris; I25.5 Ischemic cardiomyopathy; R13.10 Dysphagia, unspecified; Z96.652 Presence of left artificial knee joint; F41.9 Anxiety disorder, unspecified; I50.82 Biventricular heart failure; I11.0 Hypertensive heart disease with heart failure; I25.2 Old myocardial infarction; Z87.01 Personal history of pneumonia (recurrent); Z87.891 Personal history of nicotine dependence; Z95.810 Presence of automatic (implantable) cardiac defibrillator; Z98.1 Arthrodesis status; Z82.49 Family history of ischemic heart disease and other diseases of the circulatory system
CPT/HCPCS: 36600; 36620; 71045; 71046; 71250; 74176; 74230; 76705; 76942; 80048; 80053; 80202; 81003; 82570; 82803; 82945; 83605; 83615 91; 83735; 83880; 84100; 84145 90; 84156; 84157; 84300; 84484; 84540; 85025; 85027; 85610; 85730; 86141; 87040; 87070; 87077; 87086; 87106; 87116; 87181; 87205; 87206; 87641; 87801; 88108; 88305; 89051; 92526 GN; 92610 GN; 92611 GN; 93005; 94002; 94003; 94010; 94640; 94640 76; 94760; 94799; 97530 GO; 97530 GP; 99202; 99281; 99285; C1751; J0295; J0456; J0696; J1250; J1644; J1940; J2405; J2543; J2704; J2920; J3010; J3370; J7030; J7040; J7050; J7060; J7070; J7512